=== PATIENT | male | born 1990 | race African-American/Black ===

== ENCOUNTER → 2022-05-06 | Outpatient (CLI) | payer OTHER | END | disposition home or self-care (01) | LOC: RAH 14:17 | PROVIDERS: ATTEND Family Medicine | DX: K11.1 Hypertrophy of salivary gland (principal); R59.0 Localized enlarged lymph nodes | CPT/HCPCS: 76536 ==

== ENCOUNTER → 2022-05-27 | Outpatient (CLI) | payer OTHER ==
[~2022-05-27] MED LIST: IOHEXOL 350 MG/ML 100ML INFUS..BTL IV ONE
== END | disposition home or self-care (01) ==
LOC: EEVIPCON 15:12 → RAH 15:12
PROVIDERS: ATTEND Family Medicine
DX: K11.21 Acute sialoadenitis (principal); K11.5 Sialolithiasis; K11.1 Hypertrophy of salivary gland
CPT/HCPCS: 70492; Q9967